=== PATIENT | male | born 1940 | race Two or more races ===

== ENCOUNTER 2023-03-27 05:50 | Day surgery (SDC) | payer OTHER ==
[~2023-03-27 05:50] MED LIST: ACID REDUCER20 M1 PO; AVAPRO300 MG PO; AZELASTINE HCL6 ML OP; BACLO PO; CHILDREN'S ASPI81 MG PO; CRESTOR10 MG PO; GLUMETZA500 MG PO; HORIZANT300 MG PO; HYDROCHLOROTHIA25 MG PO; MULTI VITAMIN1 EACH PO; NORVASC5 MG PO; SINGULAIR10 MG PO; ZETIA PO; ZYRTEC10 M3 PO; [UNRECOGNIZED DRUG - OTHER] PO
== END 2023-03-27 13:00 | disposition home or self-care (01) ==
LOC: CIR.AMB 05:50
PROVIDERS: ATTEND Surgery
DX: C20 Malignant neoplasm of rectum (principal); K62.89 Other specified diseases of anus and rectum; D12.9 Benign neoplasm of anus and anal canal; K64.1 Second degree hemorrhoids; Z20.822 Contact with and (suspected) exposure to COVID-19

== ENCOUNTER 2023-04-27 10:17 | Outpatient (CLI) | payer OTHER | END 2023-04-27 10:22 | disposition home or self-care (01) | LOC: SONOGRAMA 10:17 | PROVIDERS: ATTEND Pathology Anatomic Pathology & Clinical Pathology | DX: K11.6 Mucocele of salivary gland (principal) ==

== ENCOUNTER 2025-01-06 06:33 | Day surgery (SDC) | payer OTHER ==
[~2025-01-06 06:33] MED LIST changes: +COLACE100 MG PO; +TRAM1TAB98 PO
[2025-01-06] MEDS ORDERED: MIDAZOLAM HCL 2 MG/2 ML VIAL IV ONE (10:45)
[2025-01-06] MEDS ORDERED: DIPHENHYDRAMINE HCL 50 MG/ML VIAL 1ML IV ONE (10:45)
[2025-01-06] MEDS ORDERED: fentaNYL CITRATE 50 MCG/ML AMPUL IV PUSH ONE (10:45)
== END 2025-01-06 12:05 | disposition home or self-care (01) ==
LOC: AMB-ENDOS 06:33
PROVIDERS: ATTEND Surgery
DX: C21.1 Malignant neoplasm of anal canal (principal); D12.2 Benign neoplasm of ascending colon; D12.3 Benign neoplasm of transverse colon; K57.30 Diverticulosis of large intestine without perforation or abscess without bleeding; Z91.013 Allergy to seafood